=== PATIENT | male | born 1990 | race Two or more races ===

== ENCOUNTER 2017-03-28 19:37 | Emergency (ER) | payer SELFPAY ==
[~2017-03-28] VITALS: Ht 190.5 cm; Wt 86.2 kg
[2017-03-28 20:06] LABS: BILIRUBIN,URINE NEGATIVE (NEG); GLUCOSE,URINE NEGATIVE (NEG); NITRITE,URINE NEGATIVE (NEG); PROTEIN,URINE NEGATIVE (NEG-TRACE)
--- NOTE | 2017-03-28 20:10 | PHYS DOC ---
Past Medical History Past Medical History: No Pertinent History Past Surgical History: No Surgical History Alcohol Use: None Drug Use: None Adult General Chief Complaint Chief Complaint: FLANK PAIN HPI HPI Patient is a 27 year old male who presents with with a history of intermittent mild to moderate severity right flank pain radiating to the groin; mild nausea no vomiting or diarrhea no fever. No dysuria or frequency. No prior history of kidney stones. Otherwise healthy. Review of Systems Review of Systems Constitutional: Denies fever or chills [] Eyes: Denies change in visual acuity, redness, or eye pain [] HENT: Denies nasal congestion or sore throat [] Respiratory: Denies cough or shortness of breath [] Cardiovascular: No additional information not addressed in HPI [] GI: Denies abdominal pain, nausea, vomiting, bloody stools or diarrhea [] : Denies dysuria or hematuria [] Musculoskeletal: Denies back pain or joint pain [] Integument: Denies rash or skin lesions [] Neurologic: Denies headache, focal weakness or sensory changes [] Endocrine: Denies polyuria or polydipsia [] All other systems were reviewed and found to be within normal limits, except as documented in this note. Current Medications Current Medications Current Medications Medications (Trade) Dose Ordered Sig/Chhaya Start Time Stop Time Status Last Admin Dose Admin Ketorolac Tromethamine (Toradol) 30 mg 1X ONCE 03/28/17 20:15 03/28/17 20:16 DC 03/28/17 20:19 30 MG Ondansetron HCl (Zofran) 4 mg 1X ONCE 03/28/17 20:15 03/28/17 20:16 DC 03/28/17 20:19 4 MG Sodium Chloride 1,000 ml @ 1,000 mls/hr 1X ONCE 03/28/17 20:15 03/28/17 21:14 DC 03/28/17 20:18 1,000 MLS/HR Allergies Allergies Allergies Coded Allergies Type Severity Reaction Last Updated Verified No Known Drug Allergies 03/28/17 No Physical Exam Physical Exam Constitutional: Well developed, well nourished, no acute distress, non-toxic appearance. [] HENT: Normocephalic, atraumatic, bilateral external ears normal, oropharynx moist, no oral exudates, nose normal. [] Eyes: PERRLA, EOMI, conjunctiva normal, no discharge. [] Neck: Normal range of motion, no tenderness, supple, no stridor. [] Cardiovascular:Heart rate regular rhythm, no murmur [] Lungs & Thorax: Bilateral breath sounds clear to auscultation [] Abdomen: Bowel sounds normal, soft, no tenderness, no masses, no pulsatile masses. No CVA tenderness abdomen is completely benign. [] Skin: Warm, dry, no erythema, no rash. [] Back: No tenderness, no CVA tenderness. [] Extremities: No tenderness, no cyanosis, no clubbing, ROM intact, no edema. [] Neurologic: Alert and oriented X 3, normal motor function, normal sensory function, no focal deficits noted. [] Psychologic: Affect normal, judgement normal, mood normal. [] Current Patient Data Vital Signs Vital Signs Date Time Temp Pulse Resp B/P (MAP) Pulse Ox O2 Delivery O2 Flow Rate FiO2 03/28/17 21:05 69 18 134/81 (98) 97 Room Air 03/28/17 19:51 98.2 98.2 Lab Values Laboratory Tests Test 03/28/17 19:47 03/28/17 20:15 Urine Collection Type Unknown Urine Color Yellow Urine Clarity Cloudy Urine pH 7.0 Urine Specific [place] 1.020 Urine Protein Negative mg/dL (NEG-TRACE) Urine Glucose (UA) Negative mg/dL (NEG) Urine Ketones (Stick) Negative mg/dL (NEG) Urine Blood Negative (NEG) Urine Nitrite Negative (NEG) Urine Bilirubin Negative (NEG) Urine Urobilinogen Dipstick 1.0 mg/dL (0.2 mg/dL) Urine Leukocyte Esterase Negative (NEG) Urine RBC 0 /HPF (0-2) Urine WBC Occ /HPF (0-4) Urine Squamous Epithelial Cells Few /LPF Urine Amorphous Sediment Present /HPF Urine Bacteria Few /HPF (0-FEW) Urine Mucus Slight /LPF POC Hemoglobin 13.9 g/dL (14-18) L POC Hematocrit 41 % (37-52) POC Sodium 140 mmol/L (135-145) POC Potassium 3.4 mmol/L (3.5-5.0) L POC Chloride 103 mmol/L (98-110) POC Total CO2 26 mmol/L (23-32) Anion Gap 16 mmol/L (6-14) H POC Blood Urea Nitrogen 24 mg/dL (8-26) POC Creatinine 0.8 mg/dL (0.5-1.4) Glucose Level 105 mg/dL (70-99) H POC Ionized Calcium (Isabel) 1.15 mmol/L (1.13-1.32) Laboratory Tests 03/28/17 20:15 EKG EKG [] Radiology/Procedures Radiology/Procedures CT scan abdomen and pelvis[] negative per radiology report no findings consistent with kidney stones Course & Med Decision Making Course & Med Decision Making Pertinent Labs and Imaging studies reviewed. (See chart for details) Plan to check chemistries and urinalysis and CT scan abdomen and pelvis for kidney stones. Treat symptomatically. No findings consistent with kidney stones at this point likely a back strain.] Dragon Disclaimer Dragon Disclaimer This electronic medical record was generated, in whole or in part, using a voice recognition dictation system. Departure Departure Impression: Primary Impression: Acute low back pain Disposition: HOME, SELF-CARE Condition: IMPROVED Referrals: NO PCP (PCP) Patient Instructions: Back Pain, Adult, [id number] Scripts Naproxen (NAPROXEN) 375 Mg Tablet. 375 MG PO BID for PAIN for 7 Days, #14 TAB.SR Prov: KIMBERLY DE LA GARZA MD 03/28/17 KIMBERLY DE LA GARZA MD Mar 28, 2017 20:09
[2017-03-28] MEDS ORDERED: KETOROLAC 30 MG/ML INJ. IV ONE (20:15)
[2017-03-28] MEDS ORDERED: IV NORMAL SALINE 1000ML BAG 1,000 ML IV ONE (20:15)
[2017-03-28] MEDS ORDERED: ONDANSETRON PF 4 MG/2 ML VIAL. IV ONE (20:15)
[2017-03-28 20:24] LABS: BACTERIA,URINE FEW /HPF (0-FEW); RBC,URINE 0 /HPF (0-2); SQUAMOUS EPITHELIAL CELL,UR FEW /LPF; WBC,URINE OCC /HPF (0-4)
[2017-03-28 20:41] LABS: POTASSIUM ISTAT 3.4 mmol/L (3.5-5.0)
--- NOTE | 2017-03-28 20:55 | RAD ---
CT ABDOMEN PELVIS WO CONTRAST dated 03/28/2017 8:42 PM Indication: Severe right flank pain, pain for 5 days.. Comparison: No comparison is available. Technique: Contiguous axial imaging of the abdomen and pelvis performed without the administration of IV or oral contrast using renal stone protocol. One or more of the following individualized dose reduction techniques were utilized for this examination: 1. Automated exposure control 2. Adjustment of the mA and/or kV according to patient size 3. Use of iterative reconstruction technique Findings: Limited images of lung bases are clear. Heart size within normal limits. No pleural or pericardial effusion. Solid abdominal viscera not well evaluated in the absence of contrast material. No apparent attenuation abnormality of the liver or spleen. Pancreas, adrenal glands and gallbladder are unremarkable. Both kidneys are symmetric in size and attenuation. No calcific renal or ureteral stone. No hydronephrosis. Unopacified GI tract is normal in caliber and contour. No focal bowel wall thickening. The appendix is normal in caliber. No ascites or lymphadenopathy. Images of pelvis show nondistended urinary bladder. Prostate gland normal in size.. No free pelvic fluid or pelvic lymphadenopathy. Bone windows show no acute findings. IMPRESSION: 1. No acute abnormality of abdomen or pelvis. No evidence of renal stone or hydronephrosis. 2. Normal appendix. Electronically signed by: Reagan Bowles MD (03/28/2017 8:52 PM) [id number]
[2017-03-28] MEDS ORDERED: NAPR375T5 PO (21:02)
[2017-03-28 21:05] VITALS: BP 134/81
== END 2017-03-28 21:34 | disposition home or self-care (01) ==
LOC: ER 19:37
DX: M54.5 Low back pain (principal); R10.9 Unspecified abdominal pain; R11.0 Nausea
CPT/HCPCS: 74176; 80047; 81001; 96361; 96374; 96375; 99285; J1885; J2405; J7030

== ENCOUNTER 2018-07-14 21:52 | Emergency (ER) | payer SELFPAY ==
[~2018-07-14] VITALS: Ht 167.6 cm; Wt 86.2 kg
[~2018-07-14 21:52] MED LIST: NAPR375T5 PO
[2018-07-14 21:58] VITALS: BP 158/91
--- NOTE | 2018-07-14 22:31 | PHYS DOC ---
Past Medical History Past Medical History: No Pertinent History (WAYNE SANTIAGO APRN) Past Surgical History: No Surgical History (WAYNE SANTIAGO APRN) Alcohol Use: None Drug Use: None (WAYNE SANTIAGO APRN) Adult General Chief Complaint Chief Complaint: MECHANICAL FALL HPI HPI Patient is a 28 year old medical presents with mild left shoulder pain status post falling early this morning. Patient denies any loss of consciousness. States the pain is throbbing and intermittent worse on range of motion. States has not taken anything to alleviate the pain (WAYNE SANTIAGO APRN) Review of Systems Review of Systems Constitutional: Denies fever or chills [] Musculoskeletal: Reports left shoulder pain Integument: Denies rash or skin lesions [] Neurologic: Denies headache, focal weakness or sensory changes [] All other systems were reviewed and found to be within normal limits, except as documented in this note. (WAYNE SANTIAGO APRN) Allergies Allergies Allergies Coded Allergies Type Severity Reaction Last Updated Verified No Known Drug Allergies 03/28/17 No (ELDA MENDOZA DO) Physical Exam Physical Exam Constitutional: Well developed, well nourished, no acute distress, non-toxic appearance. [] Skin: Warm, dry, no erythema, no rash. [] Back: No tenderness, no CVA tenderness. [] Extremities: Left shoulder with no obvious deformity. Slight tenderness on palpation of the distal clavicle. Full range of motion to the left shoulder and left upper extremity including abduction and adduction of the left upper extremity. Adequate radial, medial, ulnar sensation to the left upper extremity. +2 left radial pulse. Cap refill less than 2 seconds the left fingers. Neurologic: Alert and oriented X 3, normal motor function, normal sensory function, no focal deficits noted. [] Psychologic: Affect normal, judgement normal, mood normal. [] (WAYNE SANTIAGO APRN) Current Patient Data Vital Signs Vital Signs Date Time Temp Pulse Resp B/P (MAP) Pulse Ox O2 Delivery O2 Flow Rate FiO2 07/14/18 21:58 97.7 72 16 158/91 (113) 98 Room Air 97.7 (ELDA MENDOZA DO) EKG EKG [] (WAYNE SANTIAGO APRN) Radiology/Procedures Radiology/Procedures [] (WAYNE SANTIAGO APRN) Course & Med Decision Making Course & Med Decision Making Pertinent Labs and Imaging studies reviewed. (See chart for details) This is a 28-year-old male patient presenting to the ED today with left shoulder pain status post falling. Right shoulder x-rays interpreted by Dr. Mendoza are negative for any acute findings. Ice elevation encouraged. Diclofenac for pain. Follow-up with PCP or orthopedic doctor in one week. (WAYNE SANTIAGO APRN) Dragon Disclaimer Dragon Disclaimer This electronic medical record was generated, in whole or in part, using a voice recognition dictation system. (WAYNE SANTIAGO APRN) Departure Departure Impression: Primary Impression: Fall Additional Impression: Contusion of shoulder, left Disposition: HOME, SELF-CARE Condition: STABLE Referrals: NO PCP (PCP) KATINA VILLASENOR MD follow up in one week Patient Instructions: Contusion, [id number] Additional Instructions: You were evaluated in the emergency room and noted to have right shoulder contusion. Ice elevate the extremity. Take the prescribed medications as needed for pain. Follow-up with the orthopedic doctor or your own doctor in 1-2 weeks. Scripts Cyclobenzaprine Hcl (CYCLOBENZAPRINE HCL) 10 Mg Tablet 1 TAB PO TID, #30 TAB Prov: WAYNE SANTIAGO APRN 07/14/18 Diclofenac Sodium (DICLOFENAC SODIUM) 50 Mg Tablet. 1 TAB PO BID, #20 TAB 0 Refills Prov: WAYNE SANTIAGO APRN 07/14/18 Attending Signature Attending Signature I have reviewed the PA/CASTING FINISHER's note and plan of care. I was available for consultation as needed during the patient's visit in the emergency department. I agree with the clinical impression, plan, and disposition. (ELDA MENDOZA DO) Problem Qualifiers Primary Impression: Fall Encounter type: initial encounter Qualified Codes: W19.XXXA - Unspecified fall, initial encounter Additional Impression: Contusion of shoulder, left Encounter type: initial encounter Qualified Codes: S40.012A - Contusion of left shoulder, initial encounter WAYNE SANTIAGO APRN Jul 14, 2018 22:31 ELDA MENDOZA DO Jul 15, 2018 04:31
[2018-07-14] MEDS ORDERED: DICL50TA4 PO (23:05)
[2018-07-14] MEDS ORDERED: CYCL10TA2 PO (23:05)
--- NOTE | 2018-07-15 07:59 | RAD ---
Left shoulder 3 views 07/14/2018. Reason for exam: Pain after falling. No fracture or dislocation is seen. There is no significant joint narrowing. IMPRESSION: No acute abnormality. Electronically signed by: Julio Cesar Cope Jr., MD (07/15/2018 7:56 AM) [facility] [place]
== END 2018-07-14 23:48 | disposition home or self-care (01) ==
LOC: ER 21:52
DX: S40.012A Contusion of left shoulder, initial encounter (principal); W01.0XXA Fall on same level from slipping, tripping and stumbling without subsequent striking against object, initial encounter; Y93.89 Activity, other specified; Y92.89 Other specified places as the place of occurrence of the external cause; Y99.8 Other external cause status
CPT/HCPCS: 73030; 99284

== ENCOUNTER 2020-01-20 10:57 | Emergency (ER) | payer SELFPAY ==
[~2020-01-20] VITALS: Ht 175.3 cm; Wt 93.0 kg
[~2020-01-20 10:57] MED LIST changes: +CYCL10TA2 PO; +DICL50TA4 PO
[2020-01-20 11:08] VITALS: BP 159/85
[2020-01-20] MEDS ORDERED: TETRACAINE 0.5% OPHTH SOLUTION 4ML BOTTLE. ONE (11:17)
[2020-01-20] MEDS ORDERED: FLUORESCEIN OPHTH TEST STRIP. ONE (11:17)
[2020-01-20] MEDS ORDERED: ERYT1OIN6 LEFTEYE (11:58)
--- NOTE | 2020-01-20 11:59 | PHYS DOC ---
Past Medical History Past Medical History: No Pertinent History Past Surgical History: No Surgical History Smoking Status: Never Smoker Alcohol Use: None Drug Use: None General Adult EDM: Chief Complaint: EYE PROBLEMS HPI: HPI: Patient is a 29 year old male who presents the ED today complaining of possible foreign object to the left eye. Patient states 3 days ago he was cutting tile and a piece of tile flew into his left eye. Patient states he had eyeglasses on. Patient denies any vision loss. Review of Systems: Review of Systems: Constitutional: Denies fever or chills., Eyes: Reports left eye possible foreign object, denies change in visual acuity. [] Musculoskeletal: Denies back pain or joint pain. [] Integument: Denies rash. [] Neurologic: Denies headache, focal weakness or sensory changes. [] Psychiatric: Denies depression or anxiety. [] Heart Score: Risk Factors: Risk Factors: DM, Current or recent (<one month) smoker, HTN, HLP, family history of CAD, obesity. Risk Scores: Score 0 - 3: 2.5% MACE over next 6 weeks - Discharge Home Score 4 - 6: 20.3% MACE over next 6 weeks - Admit for Clinical Observation Score 7 - 10: 72.7% MACE over next 6 weeks - Early Invasive Strategies Current Medications: Current Medications Medications (Trade) Dose Ordered Sig/Chhaya Start Time Stop Time Status Last Admin Dose Admin Fluorescein Sodium (Ful-Citlali) 1 strip 1X ONCE 01/20/20 12:00 01/20/20 12:01 01/20/20 11:35 1 STRIP Tetracaine HCl (Tetracaine) 1 drop 1X ONCE 01/20/20 12:00 01/20/20 12:01 01/20/20 11:35 1 DROP Allergies: Allergies: Allergies Coded Allergies Type Severity Reaction Last Updated Verified No Known Drug Allergies 03/28/17 No Physical Exam: PE: Constitutional: Well developed, well nourished, no acute distress, non-toxic appearance. [] HENT: Normocephalic, atraumatic, bilateral external ears normal, oropharynx moist, no oral exudates, nose normal. [] Eyes: PERRLA, EOMI, left conjunctive is slightly injected Skin: Warm, dry, no erythema, no rash. [] Back: No tenderness, no CVA tenderness. [] Extremities: No tenderness, no cyanosis, no clubbing, ROM intact, no edema. [] Neurologic: Alert and oriented X 3, normal motor function, normal sensory function, no focal deficits noted. [] Psychologic: Affect normal, judgement normal, mood normal. [] EKG: EKG: [] Radiology/Procedures: Radiology/Procedures: []Indication: Left eye Procedure: The area of the foreign body was left eye. Local anesthesia over the foreign body site was tetracaine, I will stained with fluorescein. No foreign body was noted in the left eye, no corneal abrasions. The patient's tetanus status [TETANUS STATUS:]. The patient tolerated the procedure well Complications: none Course & Med Decision Making: Course & Med Decision Making Pertinent Labs and Imaging studies reviewed. (See chart for details) This is a 29-year-old male patient presenting to the ED today to be evaluated for possible foreign object to the left eye. Patient was cutting tile and a piece of wood flew into his left eye 3 days ago. Left eye was examined, no foreign object was noted, no corneal abrasions. Follow-up with multiple needle stitcher in the course of this week. Tetanus is up-to-date. Dragon Disclaimer: Dragon Disclaimer: This electronic medical record was generated, in whole or in part, using a voice recognition dictation system. Departure Departure Impression: Primary Impression: Eye foreign body Qualified Codes: T15.92XA - Foreign body on external eye, part unspecified, left eye, initial encounter Disposition: HOME, SELF-CARE Condition: STABLE Referrals: NO PCP (PCP) NOVA MARTINEZ MD follow up in the course of this week Patient Instructions: Eye - Foreign Body Additional Instructions: Your left eye was examined, there is no foreign object. Use the prescribed eye medication as ordered. Follow-up with the provided multiple needle stitcher in the course of this week Scripts Erythromycin Base (Erythromycin) 1 Gm Oint...g. 1 GM LEFTEYE Q4HRS W/A, #1 MISC apply 1/2 inch to the left eye every 4 hrs while awake for 7 days Prov: WAYNE SANTIAGO APRN 01/20/20 Justicifation of Admission Dx: Justifications for Admission: Justification of Admission Dx: N/A WAYNE SANTIAGO APRN Jan 20, 2020 11:59
[2020-01-20] MEDS ORDERED: TETRACAINE 0.5% OPHTH SOLUTION 4ML BOTTLE. OS ONE (12:00)
[2020-01-20] MEDS ORDERED: FLUORESCEIN OPHTH TEST STRIP. OS ONE (12:00)
== END 2020-01-20 12:34 | disposition home or self-care (01) ==
LOC: ER 10:57
DX: T15.02XA Foreign body in cornea, left eye, initial encounter (principal); Y29.XXXA Contact with blunt object, undetermined intent, initial encounter; Y93.89 Activity, other specified; Y92.89 Other specified places as the place of occurrence of the external cause; Y99.8 Other external cause status
CPT/HCPCS: 99283

== ENCOUNTER 2021-03-27 19:38 | Emergency (ER) | payer SELFPAY ==
[~2021-03-27] VITALS: Ht 165.1 cm; Wt 100.0 kg
[~2021-03-27 19:38] MED LIST changes: +CYCL10TA19 PO; -CYCL10TA2 PO; +DOCU100C28 PO; +ERYT1OIN6 LEFTEYE; +OXYC1TAB15 PO; +SULF1TAB24 PO
[2021-03-27 20:05] VITALS: BP 152/65
[2021-03-27 20:27] LABS: BASO % 1 % (0-3); EOS # 0.1 x10^3/uL (0.0-0.7); EOS % 1 % (0-3); HEMATOCRIT 37.7 % (39.0-53.0); LYMPH # 2.6 x10^3/uL (1.0-4.8); LYMPH % 33 % (24-48); MEAN CORPUSCULAR HEMOGLOBIN 31 pg (25-35); MEAN CORPUSCULAR HGB CONC 34 g/dL (31-37); MEAN CORPUSCULAR VOLUME 90 fL (79-100); MONO # 0.6 x10^3/uL (0.0-1.1); MONO % 7 % (0-9); NEUT # 4.6 x10^3/uL (1.8-7.7); NEUT % 58 % (31-73); PLATELET COUNT 242 x10^3/uL (140-400); WHITE BLOOD COUNT 7.9 x10^3/uL (4.0-11.0)
--- NOTE | 2021-03-27 20:31 | PHYS DOC ---
Past Medical History Past Medical History: No Pertinent History Past Surgical History: No Surgical History, Other Additional Past Surgical Histo: Anorectal abscess I & D Smoking Status: Never Smoker Alcohol Use: Occasionally Drug Use: None General Adult EDM: Chief Complaint: SKIN PROBLEM HPI: HPI: Patient is a 31-year-old male that presents today with pain in his coccyx area. Patient states that in January of this year patient was admitted and had an I&D of his anorectal abscess by Dr. Barnes, he presents today with similar complaints as January. Patient denies fever or chills, does report some drainage from the area. Review of Systems: Review of Systems: Constitutional: Denies fever or chills. [] Eyes: Denies change in visual acuity. [] HENT: Denies nasal congestion or sore throat. [] Respiratory: Denies cough or shortness of breath. [] Cardiovascular: Denies chest pain or edema. [] GI: Denies abdominal pain, nausea, vomiting, bloody stools or diarrhea. pain in right buttock/coccyx area : Denies dysuria. [] Musculoskeletal: Denies back pain or joint pain. [] Integument: Denies rash. [] Neurologic: Denies headache, focal weakness or sensory changes. [] Endocrine: Denies polyuria or polydipsia. [] Lymphatic: Denies swollen glands. [] Psychiatric: Denies depression or anxiety. [] Heart Score: C/O Chest Pain: N/A Risk Factors: Risk Factors: DM, Current or recent (<one month) smoker, HTN, HLP, family history of CAD, obesity. Risk Scores: Score 0 - 3: 2.5% MACE over next 6 weeks - Discharge Home Score 4 - 6: 20.3% MACE over next 6 weeks - Admit for Clinical Observation Score 7 - 10: 72.7% MACE over next 6 weeks - Early Invasive Strategies Allergies: Allergies: Allergies Coded Allergies Type Severity Reaction Last Updated Verified No Known Drug Allergies 03/28/17 No Physical Exam: PE: Constitutional: Well developed, well nourished, no acute distress, non-toxic appearance. [] HENT: Normocephalic, atraumatic, bilateral external ears normal, oropharynx moist, no oral exudates, nose normal. [] Eyes: PERRLA, EOMI, conjunctiva normal, no discharge. [] Neck: Normal range of motion, no tenderness, supple, no stridor. [] Cardiovascular:Heart rate regular rhythm, no murmur [] Lungs & Thorax: Bilateral breath sounds clear to auscultation [] Abdomen: Bowel sounds normal, soft, no tenderness, no masses, no pulsatile masses. right buttock area is red and swollen, pain with palpation, drainage noted, unable to tell where drainage is coming from. Skin: Warm, dry, no erythema, no rash. [] Back: No tenderness, no CVA tenderness. [] Extremities: No tenderness, no cyanosis, no clubbing, ROM intact, no edema. [] Neurologic: Alert and oriented X 3, normal motor function, normal sensory function, no focal deficits noted. [] Psychologic: Affect normal, judgement normal, mood normal. [] Current Patient Data: Labs: Laboratory Tests Test 03/27/21 20:20 White Blood Count 7.9 x10^3/uL (4.0-11.0) Red Blood Count 4.20 x10^6/uL (4.30-5.70) L Hemoglobin 13.0 g/dL (13.0-17.5) Hematocrit 37.7 % (39.0-53.0) L Mean Corpuscular Volume 90 fL (79-100) Mean Corpuscular Hemoglobin 31 pg (25-35) Mean Corpuscular Hemoglobin Concent 34 g/dL (31-37) Red Cell Distribution Width 13.0 % (11.5-14.5) Platelet Count 242 x10^3/uL (140-400) Neutrophils (%) (Auto) 58 % (31-73) Lymphocytes (%) (Auto) 33 % (24-48) Monocytes (%) (Auto) 7 % (0-9) Eosinophils (%) (Auto) 1 % (0-3) Basophils (%) (Auto) 1 % (0-3) Neutrophils # (Auto) 4.6 x10^3/uL (1.8-7.7) Lymphocytes # (Auto) 2.6 x10^3/uL (1.0-4.8) Monocytes # (Auto) 0.6 x10^3/uL (0.0-1.1) Eosinophils # (Auto) 0.1 x10^3/uL (0.0-0.7) Basophils # (Auto) 0.0 x10^3/uL (0.0-0.2) Laboratory Tests 03/27/21 20:20 Vital Signs: Vital Signs Date Time Temp Pulse Resp B/P (MAP) Pulse Ox O2 Delivery O2 Flow Rate FiO2 03/27/21 20:46 72 16 98 Room Air 03/27/21 20:05 98.6 80 16 152/65 (94) 97 Room Air 98.6 03/27/21 20:05 98.6 80 16 152/65 (94) 97 Room Air 98.6 EKG: EKG: [] Radiology/Procedures: Radiology/Procedures: [REASON: abscess, rectal, OMNI 300 75 ML IV PROCEDURE: CT PELVIS W/CONTRAST Examination: CT pelvis with IV contrast HISTORY: History of abscess COMPARISON: 01/28/2021 TECHNIQUE: Axial CT images of the pelvis were performed with IV contrast. Coronal and sagittal reformats are performed Exposure: One or more of the following individualized dose reduction techniques were utilized for this examination: 1. Automated exposure control 2. Adjustment of the mA and/or kV according to patient size 3. Use of iterative reconstruction technique. FINDINGS: The visualized appendix grossly appears unremarkable. Feces and gas noted in the colon. Urinary bladder is mildly distended. There is mild fat stranding identified in the right gluteal region just to the right of the midline prominent appearing soft tissue could be phlegmonous change or soft tissue infec tion. IMPRESSION: Mild fat stranding identified in the right gluteal region just to the right of the midline with prominent appearing soft tissue could be phlegmonous change or soft tissue infection. Electronically signed by: Dmitri Richardson MD (03/27/2021 9:18 PM) [id number]] Course & Med Decision Making: Course & Med Decision Making Pertinent Labs and Imaging studies reviewed. (See chart for details) [address] Barnes on the phone he is requesting a CT pelvis with contrast to assess the abscess] 2134 spoke to patient and significant other, informed of the CT scan results showing cellulitis, will place patient on oral antibiotics with strict instruct ions to follow-up with Dr. Barnes next week. Also informed patient and family to return to the emergency department if pain increases or patient starts running a fever, patient and family member are agreeable to plan and okay for discharge. Jonathon Disclaimer: Jonathon Disclaimer: This electronic medical record was generated, in whole or in part, using a voice recognition dictation system. Departure Departure Impression: Primary Impression: Cellulitis and abscess of buttock Disposition: HOME / SELF CARE / HOMELESS Condition: STABLE Referrals: NO PCP (PCP) BELÉN BARNES MD Patient Instructions: Cellulitis Additional Instructions: Keep area clean and dry Take antibiotics as directed Follow-up by phone on Monday with Dr. Barnes's office making an appointment for follow-up Return to the emergency department for fever, increased pain or any other concerns Scripts Hydrocodone Bit/Acetaminophen (HYDROCODONE-APAP 5-325 ) 1 Tab Tablet 1 TAB PO PRN Q6HRS PRN for PAIN, #10 TAB 0 Refills Prov: JAMES ESCOBAR APRN 03/27/21 Clindamycin Hcl (CLINDAMYCIN HCL) 300 Mg Capsule 300 MG PO TID for cellulitis for 7 Days, #21 CAP Prov: JAMES ESCOBAR TREATING PLANT SUPERVISOR 03/27/21 JAMES ESCOBAR APRN Mar 27, 2021 20:31
[2021-03-27 20:35] LABS: CALCIUM 8.2 mg/dL (8.5-10.1); CREATININE 0.9 mg/dL (0.7-1.3); GFR 97.2; POTASSIUM 3.7 mmol/L (3.5-5.1)
[2021-03-27] MEDS ORDERED: IOHEXOL 300 MG/ML 100ML VIAL. IV ONE ×2 (20:45→21:00)
[2021-03-27] MEDS ORDERED: CONTRAST GIVEN. MC PRN (21:00)
--- NOTE | 2021-03-27 21:20 | RAD ---
Examination: CT pelvis with IV contrast HISTORY: History of abscess COMPARISON: 01/28/2021 TECHNIQUE: Axial CT images of the pelvis were performed with IV contrast. Coronal and sagittal reform ats are performed Exposure: One or more of the following individualized dose reduction techniques were utilized for thi s examination: 1. Automated exposure control 2. Adjustment of the mA and/or kV according to patient size 3. Use of iterative reconstruction technique. FINDINGS: The visualized appendix grossly appears unremarkable. Feces and gas noted in the colon. Urinary bladd er is mildly distended. There is mild fat stranding identified in the right gluteal region just to th e right of the midline prominent appearing soft tissue could be phlegmonous change or soft tissue inf ection. IMPRESSION: Mild fat stranding identified in the right gluteal region just to the right of the midline with promi nent appearing soft tissue could be phlegmonous change or soft tissue infection. Electronically signed by: Dmitri Richardson MD (03/27/2021 9:18 PM) [id number]
[2021-03-27] MEDS ORDERED: CLIN-94 PO (21:44)
[2021-03-27] MEDS ORDERED: HYDR-2761 PO (21:44)
== END 2021-03-27 21:50 | disposition home or self-care (01) ==
LOC: ER 19:38
DX: L03.317 Cellulitis of buttock (principal)
CPT/HCPCS: 36415; 72193; 80048; 85025; 99285; Q9967